=== PATIENT | female | born 1970 | race Caucasian/White ===

== ENCOUNTER 2024-04-12 05:48 | Emergency (ER) | payer SELFPAY ==
[~2024-04-12] VITALS: Ht 154.9 cm; Wt 88.6 kg
[2024-04-12] MEDS: SODIUM CHLORIDE 0.9% 1,000 ML IV ONE (07:12)
[2024-04-12 07:14] LABS: Chloride 104 mmol/L (98-107); Potassium 3.9 mmol/L (3.5-5.1); Sodium 138 mmol/L (136-145)
[2024-04-12 07:15] LABS: Anion Gap 8 (5-15); Calcium 10.1 mg/dL (8.7-10.4); Carbon Dioxide 26 mmol/L (20-31)
[2024-04-12 07:20] LABS: BUN/Creatinine Ratio 13.5 (10.0-20.0); Basophils # (auto) 0.1 10 ^3/uL (0-0.2); Basophils % (auto) 0.7 % (0.0-2.0); Blood Urea Nitrogen 10 mg/dL (9-23); Eosinophils # (auto) 0.1 10 ^3/uL (0-0.8); Eosinophils % (auto) 1.5 % (0.0-7.0); Glucose 152 mg/dL (74-106); Hemoglobin 13.4 g/dL (12.2-16.2); Lymphocytes # (auto) 2.2 10 ^3/uL (0.4-5.4); Magnesium 1.9 mg/dL (1.6-2.6); Mean Corpuscular Hemoglobin 28.8 pg (28.0-32.0); Mean Corpuscular Hgb Conc. 33.4 g/dL (32.0-36.0); Mean Corpuscular Volume 86.2 fL (80.0-100.0); Monocytes # (auto) 0.7 10 ^3/uL (0-1.3); Neutrophils # (auto) 6.8 10 ^3/uL (1.6-8.6); Neutrophils % (auto) 68.8 % (37.0-80.0); Nucleated Red Blood Cells % 0.1 %; Platelet Count (auto) 300 10^3/uL (140-450); Red Blood Cells 4.64 10^6/uL (4.0-5.20); Red Cell Distribution Width 13.6 % (11.8-14.3); White Blood Cell 9.9 10^3/uL (4.4-10.8)
[2024-04-12 07:30] VITALS: PULSE 86; RESP 22; O2SAT 99
[2024-04-12 09:50] VITALS: RESP 20; TEMP 98.2; O2SAT 99
[2024-04-12 09:56] VITALS: BP 114/72; PULSE 79
== END 2024-04-12 09:52 | disposition home or self-care (01) ==
LOC: ER 05:48
DX: R55 Syncope and collapse (principal); E78.5 Hyperlipidemia, unspecified; I10 Essential (primary) hypertension; Z90.49 Acquired absence of other specified parts of digestive tract
CPT/HCPCS: 36415; 71046; 80048; 82962; 83735; 83880; 84484; 85025; 93005; 96360; 96361; 99285; J7030